=== PATIENT | female | born 1955 | race Caucasian/White ===

== ENCOUNTER 2019-08-23 05:23 | Day surgery (SDC) ==
[2019-08-15 11:05] LABS: BASO# 0.11 X1000 (0.0-0.2); BASO% 2.2 % (0.0-0.8); HEMOGLOBIN 12.8 g/dL (12.0-16.0); LYMPH# 1.57 X1000 (1.2-3.4); LYMPH% 31.4 % (20.5-51.1); MCHC 32.8 g/dL (33-37); MCV 91.5 FL (81-99); MONO# 0.34 X1000 (0.11-0.59); MONO% 6.8 % (1.7-9.3); MPV 9.8 FL (7.4-10.4); NEUT# 2.58 X1000 (1.4-6.5); NEUT% 51.6 % (42.2-75.2); PLT 248 X1000 (130-400); RBC 4.26 XMIL (4.2-5.4)
[2019-08-15 12:17] LABS: AGAP 11; BUN 14 mg/dL (8-22); CALCIUM 9.3 mg/dL (8.8-10.2); CHLORIDE 105 mmol/L (98-107); COSMO 279; CREATININE 0.8 mg/dL (0.5-0.9); ESTIMATED GFR > 60; GLUCOSE 88 mg/dL (70-104); SODIUM 140 mmol/L (136-145); TCO2 24 mmol/L (25-35)
--- NOTE | 2019-08-22 10:20 | HISTORY AND PHYSICAL ---
HISTORY: The patient is a 60-year-old female who we have been following for some time, who has been managed with pessary for prolapsed uterus over the last 8 to 10 years. She is now to the point where they have decided that they wish to have surgical correction. The risks and benefits of supracervical hysterectomy with sacrocolpopexy and midurethral sling were discussed at length. She understands and is wishing to proceed. PAST MEDICAL HISTORY: Positive for right eye cancer. Positive for prolapse and arthritis. She is noted to be a para 5-0-0-5. PAST SURGICAL HISTORY: Positive for right eye removal. ALLERGIES: Shellfish. CURRENT MEDICATIONS: As needed medications and Premarin vaginal cream. SOCIAL HISTORY: Negative for tobacco, ETOH, or drugs. FAMILY HISTORY: Noncontributory. PHYSICAL EXAMINATION: GENERAL: BMI is 25. HEENT: Normocephalic, atraumatic. PERRLA. EOMI. NECK: No thyromegaly. CV: Regular rate and rhythm without murmur, gallop, or rub. PULMONARY: Clear to auscultation and percussion. ABDOMEN: Soft. : POP-Q stage III prolapse. BA is the leading edge at +2. TVL is 11. C is -8. NEUROLOGIC: Afocal. EXTREMITIES: Without clubbing, cyanosis, or edema. ASSESSMENT AND PLAN: Patient with advanced stage prolapse, who has been using pessaries for some time, and is now wishing to proceed with surgical correction. She is admitted at this time for supracervical hysterectomy, abdominal sacrocolpopexy, and midurethral sling with Obtryx. The risks and benefits were discussed at length. She understands and is wishing to proceed. cc: Chris Martins MD
[2019-08-23] MEDS ORDERED: LR 1,000 ML ONE ×3 (05:44→12:03)
[2019-08-23] MEDS ORDERED: KEFZOL 1 GM/D5W 2 GM/100 ML IVPB ONE (05:44)
[2019-08-23] MEDS ORDERED: DIPRIVAN 1% ONE (06:15)
[2019-08-23] MEDS ORDERED: FENTANYL ONE (06:15)
[2019-08-23] MEDS ORDERED: NORCURON ONE ×2 (06:16→08:49)
[2019-08-23] MEDS ORDERED: XYLOCAINE-MPF 2% ONE (06:16)
[2019-08-23] MEDS ORDERED: NEO-SYNEPHRINE ONE (06:16)
[2019-08-23] MEDS ORDERED: SODIUM CHLORIDE 0.9% 20 ML ONE (06:16)
[2019-08-23] MEDS ORDERED: SENSORCAINE-MPF 0.5%/EPI 1:200,000 ONE ×2 (06:35→11:05)
[2019-08-23] MEDS ORDERED: METROGEL-VAGINAL 0.75% GEL ONE (06:35)
[2019-08-23] MEDS ORDERED: D10W 1,000 ML ONE (06:35)
--- NOTE | 2019-08-23 06:54 | H&P REVIEW ---
H&P Update H&P Review: H&P was reviewed and patient was examined, No change has occurred in the patient's condition
[2019-08-23] MEDS ORDERED: TORADOL ONE (08:49)
[2019-08-23] MEDS ORDERED: SODIUM CHLORIDE 0.9% 10 ML ONE (08:49)
[2019-08-23] MEDS ORDERED: ROBINUL ONE (08:49)
[2019-08-23] MEDS ORDERED: ZOFRAN ONE (08:49)
[2019-08-23] MEDS ORDERED: LASIX ONE (10:22)
[2019-08-23 11:53] LABS: URINE SOURCE CATH
[2019-08-23 12:03] LABS: BILIRUBIN URINE NEGATIVE (NEGATIVE); BLOOD URINE NEGATIVE (NEGATIVE); COLOR YELLOW; GLUCOSE URINE NEGATIVE (NEGATIVE); KETONE URINE NEGATIVE (NEGATIVE); NITRITE URINE NEGATIVE (NEGATIVE); PH URINE 5.5; PROTEIN URINE NEGATIVE (NEGATIVE); SP GRAVITY URINE 1.012; TURBIDITY URINE CLEAR (CLEAR); UROBILINOGEN URINE NORMAL (NORMAL)
[2019-08-23 12:04] LABS: LEUKOCYTES URINE NEGATIVE (NEGATIVE); UR EPITHELIAL CELLS <10 /HPF (<10); URINE BACTERIA NEGATIVE /HPF; URINE RBC <10 /HPF (<10); URINE WBC <10 /HPF (<10)
[2019-08-23] MEDS: DILAUDID ONE ×2 (12:14→12:17)
[2019-08-23] MEDS ORDERED: PATIENT'S OWN MED PO SCH (12:58)
[2019-08-23] MEDS ORDERED: ZOFRAN ODT PO PRN (12:58)
--- NOTE | 2019-08-23 13:20 | OPERATIVE NOTE ---
PROCEDURE DATE: 08/23/2019 PREOPERATIVE DIAGNOSIS: POP-Q stage III prolapse. POSTOPERATIVE DIAGNOSIS: POP-Q stage III prolapse. PROCEDURES PERFORMED: 1. [facility] supracervical hysterectomy. 2. Abdominal sacrocolpopexy. 3. Bilateral salpingectomy. 4. Mid urethral sling with Obtryx. 5. Posterior compartment defect repair. SURGEON: Chris Martins MD PROMOTIONS INTERN: Aby Santillan. ANESTHESIA: General. ESTIMATED BLOOD LOSS: 50 mL. HISTORY: The patient is a 64-year-old female who has been managed with pessaries for the last 2 to 3 years. She is now wishing to proceed towards definitive surgical intervention. The risks and benefits of sacrocolpopexy and the uses of meshes were explained, and she understood and wished to proceed. OPERATIVE FINDINGS: Consistent with preoperative diagnosis. OPERATIVE PROCEDURE: The patient was taken to the operating room and placed in the supine position. After adequate general anesthesia was obtained, she was placed in the [facility]. Her abdomen and vagina were prepped and draped in the usual fashion. A supraumbilical incision was made after infiltration of 0.25% Marcaine with epinephrine. A 12 mm port and sheath were introduced through this incision into the abdominal cavity. Pelvic contents were visualized. Therefore, insufflation with CO2 to an intraabdominal pressure of 14 was performed. Left-sided ports were placed under direct visualization of the laparoscope, and then the right-sided ports were placed under direct visualization in a similar fashion after a local anesthetic was placed in all incision sites. At this time, the patient was placed in deep Trendelenburg position, and EEA sizers were placed within the vagina and the anus, and Cardenas catheter was placed. The robot was docked in the usual fashion. Hot scissors in the right hand, bipolar PK left hand, and arm 3 held a single-tooth tenaculum. Single-tooth tenaculum was utilized to grasp the fundus of the uterus and elevate it out of the pelvis. We started by elevating the fallopian tube on the left-hand side, clamping, cauterizing, and cutting the mesosalpinx region, the round ligament, the uteroovarian pedicle, and then down the cardinal ligament to the fold of the peritoneum. We then started our anterior dissection in the vesicovaginal space using primarily a sharp dissection in that area. We then clamped, cauterized, and cut the vessels along the left-hand side. We turned our attention towards the right side, elevating the fallopian tube and going through the mesosalpinx region in a clamp, cauterize, and cut fashion, through the round ligament down the cardinal ligament again to the peritoneal fold. We then continued with our vesicovaginal dissection anteriorly dropping the ureter below. We clamped and cauterized the uterine vessels at multiple sites on the right-hand side. We then continued with our vesicovaginal dissection proximally at the level of the urethrovesical neck, which was approximately 8 to 10 cm. We turned our attention towards now taking the top portion of the uterus out. Starting at the uterosacral ligaments, we utilized a single blade to cut across the posterior portion of the uterus coming anteriorly until the corpus of the uterus was extirpated from its cervical stump. The corpus was then placed in the appendiceal bed. We then grasped the cervix and continued with our dissection anteriorly. We had an excellent exposure anteriorly and our blood loss at this point had been minimal. We turned our attention towards the posterior and developed the rectovaginal space in the typical fashion staying in avascular plane and had approximately 10 cm developed posteriorly as well. We then went up to the sacral promontory, elevated the peritoneum over the top of this and then dissected down to the anterior longitudinal ligament. We did cauterize the middle sacral artery and one of the veins as well. We created our tunnel going down the right side, paying attention to the course of the ureter and to the sigmoid colon medially. We trimmed our mesh in the usual fashion. We had approximately 10 cm trimmed anteriorly and 10 cm posteriorly. The mesh was introduced in the abdominal cavity and the equipment was changed out for 2 needle drivers and we had already changed out the single-tooth tenaculum to the Cardiere grasper to help with exposure. Using the Cardiere grasper, we elevated the bladder away from the vesicovaginal space. We placed the anterior arm of the mesh in this space and then placed approximately 14 sutures anteriorly. All sutures were thrown with an initial surgeon's throw and then 4 half throws after this. We were using 2.0 [place]-González suture for this. We brought arm 2 down into the rectovaginal space, and then again in a similar fashion using approximately 10 sutures, we secured the posterior mesh to the posterior vaginal wall, being careful to not place any sutures into the distal colon. The third arm was brought up to the sacral promontory, and 2 sutures were placed through this into the anterior longitudinal ligament and secured. Excessive mesh was trimmed off. We then reperitonealized 100% of the mesh using a V-Loc suture. Copious amounts of irrigation was performed. Hemostasis was observed as we dropped our pressures down to 2 to 3. At this time we undocked the robot and placed the morcellator in the assistance port site. Using the morcellator. We easily morcellated the corpus of the uterus that had been extirpated earlier in the procedure. This was quite easily performed. We then removed the morcellator and used a Gerson Jaime closure system to close the fascia of both the assistance port and the camera port. Abdomen was deflated of CO2 as all other remaining ports were removed. Nursing services closed all skin edges with 4-0 Vicryl ligature in a subcuticular fashion and then with surgical glue for the skin edges. Vaginally, we had excellent apical anterior support. We turned our attention towards placement of the sling. The urethra was grasped proximally and distally with Allis clamps. Approximately 8 to 10 mL of the same local anesthetic was injected in a periurethral fashion, and a sagittal incision was made and sharp dissection was performed up to the ischial pubic ramus on each side. Based on the bony landmarks of the ischial pubic ramus, as well as the insertion of the adductor longus, a stab incision was initially made on the left-hand side. The halo device was introduced through that incision and the assistant press operator offset's finger, and the needle was directed out. The mesh was attached to it and was retracted back through the skin. This was performed on the contralateral side in a similar fashion. The Cardenas catheter had already been removed and a cystoscope was introduced. Bladder was filled with 300 mL of D-10. Both ureters were effluxing urine. There was no evidence of any mucosal abnormalities, suture material or mesh. The urethra was found to be within normal limits. The mid urethral incision was closed a running 2-0 Vicryl ligature. Posterior compartment was performed. Dr. Santillan did this exclusively. She grasped the vaginal mucosa more cephalad and then more distal and injected approximately 20 mL of the same local anesthetic with epinephrine. She made a horizontal incision across the perineal body at the introitus and then dissected up approximately 6 cm. She then trimmed the midline incision vaginally. She dissected out laterally after completing this, then plicated the distal levators across the midline using 0 Vicryl ligature. She then trimmed approximately 2 cm of vaginal mucosa off of each side and then closed the posterior compartment with a running 2-0 Vicryl ligature. Upon examination by myself, I felt that there was some banding in the area near the introitus, so the decision was made to reopen this incision and that was done. I trimmed and excised some more subcuticular tissue to get more freedom to the vaginal mucosa, and then we reapproximated this and this loosened this area up some. We reapproximated again with a running locking 2-0 Vicryl ligature. Rectal examination was performed and found to be within normal limits. Cardenas catheters were placed. Vaginal pack was placed. Sponge count, needle counts correct x3. PACKS AND DRAINS: Cardenas and vaginal pack. The patient was awakened and taken to the recovery room with vital signs stable. cc: Chris Martins MD
[2019-08-23] MEDS: PERIDEX MT SCH ×2 (14:18→21:17)
[2019-08-23] MEDS: TORADOL IV SCH ×2 (14:18→21:17)
[2019-08-23] MEDS: COLACE PO SCH ×2 (14:18→21:17)
[2019-08-23] MEDS: NORCO-5 PO PRN ×2 (18:24→22:27)
--- NOTE | 2019-08-23 20:36 | PROGRESS NOTE ---
DATE: 08/23/2019 TIME: 5 p.m. SUBJECTIVE: Patient is alert and oriented. She is afebrile. Vital signs are stable. ASSESSMENT/PLAN: Routine postoperative care. We will plan on removing vaginal pack and Cardenas in the morning undergoing voiding trial and if the patient is doing well, she will be discharged home. The care plan was discussed with the patient and we discussed postoperative care as well in the home setting. cc: Chris Martins MD
[2019-08-24] MEDS: TORADOL IV SCH ×2 (02:37→08:05)
[2019-08-24] MEDS: LR 1,000 ML IV SCH ×3 (02:41→04:44)
[2019-08-24 07:24] VITALS: BP 103/66
[2019-08-24] MEDS: COLACE PO SCH (08:05)
[2019-08-24] MEDS: NORCO-5 PO PRN (08:05)
[2019-08-24] MEDS: PERIDEX MT SCH (08:06)
--- NOTE | 2019-08-24 10:26 | DISCHARGE SUMMARY ---
ADMISSION DATE: 08/23/2019 DISCHARGE DATE: 08/24/2019 PRINCIPAL DIAGNOSIS: Pelvic organ prolapse. PROCEDURE: Da [facility]iel [facility] bilateral salpingectomy, midurethral sling with Obtryx, posterior compartment defect repair. HISTORY: The patient is a 64-year-old female who has been undergoing pessary management for several years who has decided to proceed with surgical intervention. HOSPITAL COURSE: The patient underwent the above-stated procedure. Blood loss at that time was approximately 50 mL. Her postoperative course has been uncomplicated. She is currently undergoing voiding trial, and will be discharged home instructions for followup in 3 weeks. DISCHARGE MEDICATIONS: [place] and Colace. DISCHARGE INSTRUCTIONS: She was instructed on a regular diet and decreased activity. cc: Chris Martins MD
== END 2019-08-24 11:48 | disposition home or self-care (01) ==
LOC: 4N 05:23 → OR 05:23
PROVIDERS: ATTEND Obstetrics & Gynecology